=== PATIENT | male | born 1990 | race Hispanic/Latino ===

== ENCOUNTER 2019-10-30 22:36 | Emergency (ER) | payer OTHER ==
[~2019-10-30] VITALS: Ht 167.6 cm; Wt 104.3 kg
[2019-10-30 23:03] VITALS: BP 168/80
--- NOTE | 2019-10-30 23:41 | DIREP ---
PROCEDURE:CHEST 2 VIEWS COMPARISON:None. INDICATIONS:Cough for 1 week FINDINGS: LUNGS/PLEURA:No significant pulmonary parenchymal abnormalities. No effusions. VASCULATURE:Normal. Unremarkable pulmonary vasculature. CARDIAC:Normal. No cardiac silhouette abnormality or cardiomegaly. MEDIASTINUM:Normal. No visible mass or adenopathy. BONES:Normal. No fracture or visible bony lesion. OTHER:Negative. CONCLUSION:Normal examination. Dictated by: Timo Inman M.D. on 10/30/2019 at 11:39 PM
--- NOTE | 2019-10-31 00:08 | ER.PDOC ---
General Chief Complaint: Dyspnea/Respdistress Stated Complaint: DIFF BREATHING,COUGH Time seen by MD: 00:02 Source: patient Exam Limitations: no limitations History of Present Illness Initial Comments Cough and difficulty breathing for 1 week. No fever or chills. 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 Timing/Duration: gradual Severity: moderate Associated Symptoms: cough, mild SOB Allergies: Coded Allergies: No Known Allergies (Unverified , 10/30/19) Constitutional: no symptoms reported EENTM: no symptoms reported Respiratory: see HPI Cardiovascular: no symptoms reported Gastrointestinal: no symptoms reported All Other Systems: Reviewed and Negative Past Medical History Medical History: no pertinent history Surgical History: tonsillectomy Social History Alcohol Use: occassionally Drug Use: none Physical Exam General Appearance: alert, no distress Throat: pharynx nml, airway nml Neck: nml inspection, supple Respiratory: no resp.distress, wheezes (mild) Abdomen: non-tender, no organomegaly CVS: reg rate & rhythm, heart sounds nml Skin: color nml, no rash, warm/dry Extremities: non-tender, nml ROM, no pedal edema NEURO/PSYCH: oriented x 3, CN's nml as tested, motor nml, sensation nml, mood/affect nml Results/Orders Results/Orders Orders - ROSY SILVERMAN MD Strep Screen (10/30/19 23:02) Influenza A&B (10/30/19 23:02) Xr Chest 2v (10/30/19 23:02) Vital Signs Date Time Temp Pulse Resp B/P (MAP) Pulse Ox O2 Delivery O2 Flow Rate FiO2 10/30/19 23:03 98.1 104 16 96 10/30/19 23:03 98.1 104 16 10/30/19 23:03 98.1 104 16 168/80 (109) 96 Room Air Laboratory Tests Test 10/30/19 23:00 Influenza Type A Antigen NEGATIVE (NEG) Influenza B Immunofluorescence NEGATIVE (NEG) Group A Streptococcus Screen NEGATIVE (NEGATIVE) Progress Progress Patient declined to have a steroid shot. He is tested for COVID-19. EKG/XRAY/CT/US XRAY: chest (Normal) Departure Time of Disposition: 00:05 Disposition: 01 HOME, SELF-CARE Impression: Primary Impression: Bronchitis Condition: Stable Referrals: PCP,UNKNOWN (PCP) PRIMARY CARE PROVIDER Additional Instructions: Z pack Medrol dose pack Albuterol HFA Stay quarantined at home until you are notified with your COVID-19 results F/U with your PCP in 5-7 days Return to ED if worsening symptoms or concerns. Duration or Time Spent with Pa: 30 min ROSY SILVERMAN MD October 31, 2019 00:08
[2019-10-31 00:15] VITALS: BP 168/98
--- NOTE | 2019-10-31 00:15 | NUR ---
IV DC'D TIP INTACT, NO BLEEDING
== END 2019-10-31 00:20 | disposition home or self-care (01) ==
LOC: ER 22:36
DX: J40 Bronchitis, not specified as acute or chronic (principal); Z03.818 Encounter for observation for suspected exposure to other biological agents ruled out
CPT/HCPCS: 36415; 71046; 87070; 87635; 87804; 87880; 99284